=== PATIENT | male | born 1955 | race Caucasian/White ===

== ENCOUNTER 2018-10-08 11:41 | Emergency (ER) | payer SELFPAY ==
[~2018-10-08] VITALS: Ht 175.3 cm; Wt 105.0 kg
[2018-10-08] MEDS ORDERED: EPINEPHrine 1:10,000 [1 MG/10 ML] SYRINGE IVP ONE (11:52)
[2018-10-08] MEDS ORDERED: SODIUM BICARBONATE [ADULT] 8.4% 50 MEQ/50 ML SYRINGE IVP ONE (11:52)
[2018-10-08] MEDS ORDERED: NALOXONE HCL 1 MG/ML 2 ML SYG IV ONE (11:52)
[2018-10-08] MEDS ORDERED: ATROPINE SULFATE 0.1 MG/ML 10 ML SYRINGE IVP ONE (11:52)
[2018-10-08 12:15] VITALS: BP 166/132
== END 2018-10-08 19:13 | disposition expired ==
LOC: EMS 11:51
DX: I46.9 Cardiac arrest, cause unspecified (principal)
CPT/HCPCS: 31500; 71045; 92950; 93005; 99285; J0171; J0461; J2310; J3490